=== PATIENT | male | born 1970 | race Caucasian/White ===

== ENCOUNTER 2019-12-15 07:43 | Inpatient (IN) | payer OTHER ==
[~2019-12-15] VITALS: Ht 170.2 cm; Wt 57.8 kg
[~2019-12-15 07:43] MED LIST: CEFP200 PO; CLON1 PO; GABA800 PO; KEPPRA1000 M1 PO; MORP30 PO; OMEP20ER PO; Pentasa500 MG PO; Prinivil10 MG PO; XARELTO20 MG PO
[2019-12-15 08:24] LABS: BASOPHILS ABSOLUTE AUTO 0.02 K/mm3 (0.00-0.23); BASOPHILS PERCENT AUTO 0 % (0-2); EOSINOPHILS ABSOLUTE AUTO 0.11 K/mm3 (0.00-0.68); EOSINOPHILS PERCENT AUTO 1 % (0-6); Hematocrit 34.3 % (37.0-53.0); Hemoglobin 11.2 g/dL (13.5-17.5); IMMATURE GRAN ABSOLUTE AUTO 0.07 K/mm3 (0.00-0.10); IMMATURE GRAN PERCENT AUTO 1 % (0-1); LYMPHOCYTES ABSOLUTE AUTO 3.29 K/mm3 (0.84-5.20); LYMPHOCYTES PERCENT AUTO 22 % (21-46); MONOCYTES PERCENT AUTO 7 % (4-13); Mean Corpuscular HGB 31.4 pg (26.0-34.0); Mean Corpuscular HGB Conc 32.7 g/dL (31.5-36.5); Mean Corpuscular Volume 96 fL (80-100); Mean Platelet Volume 10.2 fL (9.1-12.4); NEUTROPHILS ABSOLUTE AUTO 10.44 K/mm3 (1.96-9.15); NEUTROPHILS PERCENT AUTO 70 % (41-73); Platelet Count 200 K/mm3 (150-400); RDW Coefficient Variation 14.5 % (11.7-14.2); RDW Standard Deviation 50.5 fL (35.1-46.3); Red Blood Cell Count 3.57 M/mm3 (4.30-5.90); White Blood Cell Count 14.93 K/mm3 (4.00-11.30)
[2019-12-15 08:35] LABS: Albumin/Globulin Ratio 0.8 (0.8-1.8); Bilirubin, Total 0.6 mg/dL (0.1-1.0); Calcium, Blood 8.5 mg/dL (8.5-10.1); Creatinine, Blood 1.82 mg/dL (0.60-1.20); Potassium, Blood 3.8 mmol/L (3.5-5.5)
[2019-12-15 08:36] LABS: International Normalized Ratio 1.22; Prothrombin Time Results 12.9 Sec (9.7-11.5)
[2019-12-15 08:55] LABS: Calcium, Ionized (POC) 1.03 mmol/L (1.10-1.46); Chloride (POC) 98 mmol/L (98-108); Creatinine (POC) 1.8 mg/dL (0.8-1.3); Glucose (ISTAT POC) 85 mg/dL (70-99); Hemoglobin (POC) 12.6 g/dL (13.5-17.5); Potassium (POC) 3.8 mmol/L (3.5-5.5); Sodium (POC) 133 mmol/L (135-148); Total CO2 (POC) 25 mmol/L (21-32)
[2019-12-15 12:13] LABS: Hematocrit 33.3 % (37.0-53.0); Hemoglobin 10.4 g/dL (13.5-17.5)
[2019-12-15] MEDS ORDERED: GABA800 PO (12:14)
[2019-12-15] MEDS ORDERED: CLON.2 PO (12:16)
[2019-12-15] MEDS ORDERED: MIRT30 PO (12:16)
[2019-12-15] MEDS ORDERED: PRAVASTATIN SOD10 MG PO (12:24)
[2019-12-15] MEDS ORDERED: FURO20 PO (12:25)
[2019-12-15] MEDS ORDERED: ZYRTEC10 M2 PO (12:27)
[2019-12-15] MEDS ORDERED: BUDESONIDE EC3 M1 PO (12:37)
--- NOTE | 2019-12-15 14:23 | NUR ---
ARRIVAL TO ICU PT ARRIVES FROM ED TO ICU AT 1325. HE IS DRWOSY AND IS SLOW TO RESPOND; FALLS ASLEEP WHEN CONVERSING AND SPEECH IS SLIGHLTY GARBLED. AFEBRILE. BP WNL. NSR, HR 80S. LUNG SOUNDS CLEAR. PT HAS HAD TO BOWEL MOVEMENTS SINCE ARRIVAL; LIQUID, GREEN STOOL. KEPPRA INFUSION STARTED AT ARRIVAL. ZOFRAN 4 MG IVP GIVEN. ENDOSCOPY TEAM AT BEDSIDE SETTING UP FOR PROCEDURE. PTS FATHER AT BEDSIDE. WILL CONTINUE TO [facility].
--- NOTE | 2019-12-15 14:57 | NUR ---
12/15/19 1457 VIJAYA COELLO History, Chart, Medications and Allergies reviewed before start of procedure. 3-LEAD EKG REVIEWED WITH PHYSICIAN PRIOR TO START OF PROCEDURE. O2 VIA N/C INTACT THROUGHOUT SEDATION/PROCEDURE. MONITOR INTACT WITH CONTINUOUS PULSE OXIMETRY AND INTERMITTENT BP. MAC WITH DR. HARGROVE
--- NOTE | 2019-12-15 15:37 | NUR ---
REASSESSMENT VSS. PT TOLERATED EGD. NO SIGNS OF ACTIVE BLEEDING. PT SLEEPING AT THIS TIME. WILL ADVANCE DIET TOLERATED. WILL CONTINUE TO MONITOR. FATHER AT BEDSIDE.
[2019-12-15 16:00] LABS: Hematocrit 36.6 % (37.0-53.0); Hemoglobin 11.8 g/dL (13.5-17.5)
--- NOTE | 2019-12-15 17:39 | NUR ---
SHIFT SUMMARY PT RECEIVED EGD THIS AFTERNOON; NO BLEEDING FOUND. REPEAT H/H LEVELS HAVE INCREASED SINCE PRIOR DRAW. NO VOMITING THIS AFTERNOON. PT HAS HAD 3 LIQUID BOWEL MOVEMENTS; NO BLOOD SEEN. PT SLEPT MOST OF AFTERNOON FOLLOWING SCOPE. IS NOW SITTING UPRIGHT WATCHING TV. AFEBRILE. BP WNL. NSR, HR 100-110. LR MIV INFUSING AT 75 ML/HR. DIET ADVANCED BUT HAS NO APPETITE. FATHER UPDTAED AT BESIDE. PROTONIX TRANSITIONED TO IVP BID. STILL AWAITING FOR AN ISOLATED STOOL AND ISOLATED URINE SPECIMEN TO SEND TO LAB. PT AWARE OF NEED FOR BOTH. WILL GIVE BEDSIDE, HANDOFF REPORT TO BLESSING TAMAYO.
[2019-12-15 21:11] LABS: Source, Urine Clean Catch
--- NOTE | 2019-12-15 21:11 | NUR ---
ASSUMING CARE OF PATIENT- 1930 ASSUMING CARE OF PATIENT. PATIENT RESTING IN BED CURRENTLY. BEDSIDE CRYPTOGRAPHER SHOWS NSR. VITAL SIGNS STABLE. PATIENT HAS A FLAT AFFECT AND IS WITHDRAWN. PATIENT FOLLOWING COMMANDS APPROPRIATELY. PIV X [address] LR INFUSING CURRENTLY. URINAL AT THE BEDSIDE. CALL LIGHT WIHTIN REACH. CURTAIN OPEN FOR VISIBILITY.
[2019-12-15 21:15] LABS: Bilirubin, Urine Neg (Neg); Blood, Urine Neg (Neg); Glucose Qualitative, Urine Neg (Neg); Ketones, Urine 3+ (Neg); Leukocyte Esterase, Urine Neg (Neg); Nitrite, Urine Neg (Neg); Protein, Urine Neg (Neg); Specific Gravity, Urine 1.015 (1.003-1.022); Urobilinogen, Urine NORM (Normal)
[2019-12-15 21:20] LABS: Appearance, Urine Clear (Clear); Color, Urine Yellow (P-Yellow)
--- NOTE | 2019-12-16 01:41 | NUR ---
UPDATE TO PROVIDER PROVIDER NOTIFIED OF PATIENT'S PAIN NOT MANAGED BY CURRENTLY ORDERED PAIN MEDICATIONS. PATIENT TAKES 30 MG MORPHINE PO EVERY 8 HOURS AT HOME. THIS WAS PAUSED DUE TO NPO STATUS WHICH HAS NOW CHANGED. TORB TO RE-ORDER HOME MORPHINE DOSE.
[2019-12-16 03:52] LABS: Hematocrit 33.3 % (37.0-53.0); Hemoglobin 10.8 g/dL (13.5-17.5); Mean Corpuscular HGB 31.3 pg (26.0-34.0); Mean Corpuscular HGB Conc 32.4 g/dL (31.5-36.5); Mean Corpuscular Volume 97 fL (80-100); Mean Platelet Volume 10.2 fL (9.1-12.4); Platelet Count 216 K/mm3 (150-400); RDW Coefficient Variation 14.7 % (11.7-14.2); RDW Standard Deviation 52.3 fL (35.1-46.3); Red Blood Cell Count 3.45 M/mm3 (4.30-5.90); White Blood Cell Count 8.97 K/mm3 (4.00-11.30)
[2019-12-16 04:08] LABS: Anion Gap 5 mmol/L (6-16); Blood Urea Nitrogen 26 mg/dL (8-24); Bun/Creatinine Ratio 34.3 (12.0-20.0); CO2, Blood 27 mmol/L (21-32); Calcium, Blood 8.2 mg/dL (8.5-10.1); Chloride, Blood 110 mmol/L (98-108); Creatinine, Blood 0.76 mg/dL (0.60-1.20); Glomerular Filtration Rate >60 (60-); Glucose, Blood 99 mg/dL (70-99); Potassium, Blood 3.5 mmol/L (3.5-5.5); Sodium, Blood 142 mmol/L (136-145)
[2019-12-16 05:52] LABS: Adenovirus F 40/41 Not Detected (NOT DETECT); Astrovirus Not Detected (NOT DETECT); Campylobacter Sp Not Detected (NOT DETECT); Cryptosporidium Not Detected (NOT DETECT); Cyclospora Cayetanensis Not Detected (NOT DETECT); E. Coli O157 Not Detected (NOT DETECT); Entamoeba Histolytica Not Detected (NOT DETECT); Enteroaggregative E. coli-EAEC Not Detected (NOT DETECT); Enteropathogenic E. coli-EPEC Not Detected (NOT DETECT); Enterotoxigenic E. coli-ETEC Not Detected (NOT DETECT); Giardia Lamblia Not Detected (NOT DETECT); Norovirus GI/GII Not Detected (NOT DETECT); Plesiomonas Shigelloides Not Detected (NOT DETECT); Rotavirus A Not Detected (NOT DETECT); Salmonella Sp Not Detected (NOT DETECT); Sapovirus Not Detected (NOT DETECT); Shiga Toxin-prod E. coli-STEC Not Detected (NOT DETECT); Shigella/Enteroin E. coli-EIEC Not Detected (NOT DETECT); Vibrio Cholerae Not Detected (NOT DETECT); Vibrio Sp Not Detected (NOT DETECT); Yersinia Enterocolitica Not Detected (NOT DETECT)
--- NOTE | 2019-12-16 05:54 | NUR ---
END OF SHIFT SUMMARY PATIENT REMAINS NEUROLIGCALLY INTACT. COMPLAINTS OF BACK AND ABDOMINAL PAIN. PRN FENTANYL GIVEN X 1. HOME PO MORPHINE DOSE RESTARTED. ABLE TO TRANSFER TO AND FROM BEDSIDE COMMODE WITH STANDBY ASSIST. BEDSIDE APRON OPERATOR SHOWS NSR/ST. TACHYCARDIC IN THE 90S-110S. BP STABLE. AFEBRILE. NO NOTABLE EDEMA. PATIENT HAVING FREQUENT EPISODES OF LIQUID WATERY DIARRHEA, INCONTINENT AT TIMES. VOIDS WITH URINAL. ADVANCING DIET TOLERATED. POOR APPETITE. PIV X [address] LR INFUSING AT 75 MLS/HR. SKIN IS INTACT WITH SCATTERED AREAS OF ECCHYMOSIS. PATIENT CALLS APPRORPIATELY. CALL LIGHT REMAINS WITHIN REACH OF THE PATIENT.
--- NOTE | 2019-12-16 13:15 | NUR ---
REASSESSMENT PT CONTINUES TO DO WELL WITH NO SIGNS OF BLEEDING. HE REMAINS QUITE UNCOMFORTABLE THOUGH, LARGELY DUE TO THE BED PT SAYS. OFFERED TO GET PT UP TO A CHAIR, WHICH PT INITIALLY ACCEPTED, BUT THEN REFUSED BECAUSE HE WANTED TO NAP. PLAN IS FOR PT TO HOPEFULLY GO HOME TODAY, BUT WAITING ON C.DIFF TOXIN. CALLED LAB AND THEY SAID THEY WILL TRY TO RUN IT TODAY, BUT THEY CAN'T GIVE A TIME FRAME ON WHEN THEY WILL GET IT DONE. DR. DIEHL INFORMED OF THIS BECAUSE PT IS ASKING IF HE CAN SIGN HIMSELF OUT AND DR. DIEHL SAID HE WILL COME TALK TO PT. LUNGS REMAIN CLEAR, RA, SR, BP STABLE. STILL HAVING LIQUID STOOLS. CONTINUING TO MONITOR.
--- NOTE | 2019-12-16 16:19 | NUR ---
C.DIFF TOXIN BACK AND PT TO DISCHARGE HOME. DISCHARGE PACKET GIVEN TO PT WITH INSTRUCTIONS REGARDING FOLLOW UP APPTS AND MEDICATIONS. PT PROVIDED WITH EDUCATION ON C.DIFF AND GI BLEEDS. PT VERBALIZED UNDERSTANDING OF INSTRUCTIONS. IV REMOVED. PT DRESSED AND WAITING FOR HIS RIDE.
--- NOTE | 2019-12-16 16:40 | NUR ---
DISCHARGE PT DISCHARGED VIA PRIVATE VEHICLE. ALL BELONGINGS SENT HOME WITH PT.
== END 2019-12-16 16:35 | disposition home or self-care (01) | DRG 369 ==
LOC: ER 07:43 → ICUW 11:58 → ICUE 11:58
PROVIDERS: Nurse Practitioner Acute Care; Physician Assistant; Student in an Organized Health Care Education/Training Program; ADMIT Internal Medicine
PROC: 0DJ08ZZ Inspection of Upper Intestinal Tract, Via Natural or Artificial Opening Endoscopic (ICD-10-PCS; principal; 2019-12-15 13:30)
PROC: 0DJD8ZZ Inspection of Lower Intestinal Tract, Via Natural or Artificial Opening Endoscopic (ICD-10-PCS; 2019-12-15 13:30)
DX: K22.6 Gastro-esophageal laceration-hemorrhage syndrome (principal); D62 Acute posthemorrhagic anemia; K50.90 Crohn's disease, unspecified, without complications; N17.9 Acute kidney failure, unspecified; G90.50 Complex regional pain syndrome I, unspecified; K21.0 Gastro-esophageal reflux disease with esophagitis; I25.10 Atherosclerotic heart disease of native coronary artery without angina pectoris; Z86.718 Personal history of other venous thrombosis and embolism; F17.210 Nicotine dependence, cigarettes, uncomplicated; Z86.73 Personal history of transient ischemic attack (TIA), and cerebral infarction without residual deficits; R76.0 Raised antibody titer; G40.909 Epilepsy, unspecified, not intractable, without status epilepticus; I95.9 Hypotension, unspecified; K44.9 Diaphragmatic hernia without obstruction or gangrene; K31.7 Polyp of stomach and duodenum
CPT/HCPCS: 0097U; 36415; 74176; 80047; 80048; 80053; 81003; 85014; 85018; 85025; 85027; 85610; 86850; 86900; 86901; 87324; 93005; 93010; 96361; 96365; 96366; 96375; 96376; 99285-25; C9113; J0171; J1170; J1430; J1953; J2405; J2704; J2765; J3010; J7030; J7120; U0002

== ENCOUNTER 2021-04-03 09:59 | Emergency (ER) | payer OTHER ==
[~2021-04-03] VITALS: Ht 177.8 cm; Wt 65.8 kg
[~2021-04-03 09:59] MED LIST changes: +BUDESONIDE EC3 M1 PO; +CLON.2 PO; +DOXY100 PO; +FURO20 PO; +MIRT30 PO; +PRAVASTATIN SOD10 MG PO; +ZYRTEC10 M2 PO
[2021-04-03 10:52] LABS: BASOPHILS ABSOLUTE AUTO 0.05 K/mm3 (0.00-0.23); BASOPHILS PERCENT AUTO 1 % (0-2); EOSINOPHILS ABSOLUTE AUTO 0.17 K/mm3 (0.00-0.68); EOSINOPHILS PERCENT AUTO 2 % (0-6); Hematocrit 45.9 % (37.0-53.0); IMMATURE GRAN ABSOLUTE AUTO 0.04 K/mm3 (0.00-0.10); IMMATURE GRAN PERCENT AUTO 0 % (0-1); LYMPHOCYTES ABSOLUTE AUTO 2.39 K/mm3 (0.84-5.20); LYMPHOCYTES PERCENT AUTO 27 % (21-46); MONOCYTES ABSOLUTE AUTO 0.68 K/mm3 (0.16-1.47); MONOCYTES PERCENT AUTO 8 % (4-13); Mean Corpuscular HGB 28.5 pg (26.0-34.0); Mean Corpuscular HGB Conc 30.5 g/dL (31.5-36.5); Mean Corpuscular Volume 93 fL (80-100); Mean Platelet Volume 9.7 fL (9.1-12.4); NEUTROPHILS PERCENT AUTO 63 % (41-73); Platelet Count 341 K/mm3 (150-400); RDW Coefficient Variation 16.2 % (11.7-14.2); Red Blood Cell Count 4.92 M/mm3 (4.30-5.90); White Blood Cell Count 9.03 K/mm3 (4.00-11.30)
[2021-04-03 11:16] LABS: Alanine Aminotransfer (ALT/SGP 12 U/L (12-78); Albumin, Blood 2.9 g/dL (3.4-5.0); Albumin/Globulin Ratio 0.5 (0.8-1.8); Alk Phos 101 U/L (50-136); Anion Gap 5 mmol/L (6-16); Aspartate Aminotrans (AST/SGOT 11 U/L (12-37); Bilirubin, Total 0.3 mg/dL (0.1-1.0); Blood Urea Nitrogen 10 mg/dL (8-24); Bun/Creatinine Ratio 12.2 (12.0-20.0); CO2, Blood 27 mmol/L (21-32); Chloride, Blood 105 mmol/L (98-108); Creatinine, Blood 0.82 mg/dL (0.60-1.20); Globulin, Blood 5.3 g/dL (2.2-4.0); Glomerular Filtration Rate >60 (60-); Glucose, Blood 81 mg/dL (70-99); Potassium, Blood 4.4 mmol/L (3.5-5.5); Sodium, Blood 137 mmol/L (136-145); Total Protein, Blood 8.2 g/dL (6.4-8.2); Troponin I <0.015 ng/mL (0.000-0.040)
== END 2021-04-03 13:08 | disposition home or self-care (01) ==
LOC: ER 09:59
PROVIDERS: Student in an Organized Health Care Education/Training Program
DX: M94.0 Chondrocostal junction syndrome [Tietze] (principal); R09.1 Pleurisy; K21.9 Gastro-esophageal reflux disease without esophagitis; Z86.718 Personal history of other venous thrombosis and embolism; I25.10 Atherosclerotic heart disease of native coronary artery without angina pectoris; F17.210 Nicotine dependence, cigarettes, uncomplicated; Z88.6 Allergy status to analgesic agent; Z88.8 Allergy status to other drugs, medicaments and biological substances; Z91.048 Other nonmedicinal substance allergy status; Z79.899 Other long term (current) drug therapy
CPT/HCPCS: 36415; 71046; 80053; 83690; 83880; 84484; 85025; 93005; 93010; 99285-25

== ENCOUNTER 2021-05-02 11:41 | Emergency (ER) | payer OTHER ==
[~2021-05-02] VITALS: Ht 172.7 cm; Wt 63.5 kg
[2021-05-02 12:47] LABS: BASOPHILS ABSOLUTE AUTO 0.05 K/mm3 (0.00-0.23); BASOPHILS PERCENT AUTO 1 % (0-2); EOSINOPHILS ABSOLUTE AUTO 0.18 K/mm3 (0.00-0.68); EOSINOPHILS PERCENT AUTO 2 % (0-6); Hematocrit 45.4 % (37.0-53.0); Hemoglobin 14.5 g/dL (13.5-17.5); IMMATURE GRAN ABSOLUTE AUTO 0.04 K/mm3 (0.00-0.10); IMMATURE GRAN PERCENT AUTO 0 % (0-1); LYMPHOCYTES ABSOLUTE AUTO 2.83 K/mm3 (0.84-5.20); LYMPHOCYTES PERCENT AUTO 27 % (21-46); MONOCYTES ABSOLUTE AUTO 0.75 K/mm3 (0.16-1.47); MONOCYTES PERCENT AUTO 7 % (4-13); Mean Corpuscular HGB 28.8 pg (26.0-34.0); Mean Corpuscular HGB Conc 31.9 g/dL (31.5-36.5); Mean Corpuscular Volume 90 fL (80-100); Mean Platelet Volume 9.7 fL (9.1-12.4); NEUTROPHILS PERCENT AUTO 64 % (41-73); Platelet Count 374 K/mm3 (150-400); RDW Coefficient Variation 15.9 % (11.7-14.2); RDW Standard Deviation 52.4 fL (35.1-46.3); Red Blood Cell Count 5.04 M/mm3 (4.30-5.90); White Blood Cell Count 10.65 K/mm3 (4.00-11.30)
[2021-05-02 13:35] LABS: Alanine Aminotransfer (ALT/SGP 8 U/L (12-78); Albumin, Blood 3.3 g/dL (3.4-5.0); Albumin/Globulin Ratio 0.7 (0.8-1.8); Alk Phos 113 U/L (50-136); Anion Gap 6 mmol/L (6-16); Aspartate Aminotrans (AST/SGOT 9 U/L (12-37); Bilirubin, Total 0.4 mg/dL (0.1-1.0); Blood Urea Nitrogen 11 mg/dL (8-24); Bun/Creatinine Ratio 14.4 (12.0-20.0); CO2, Blood 24 mmol/L (21-32); Calcium, Blood 8.9 mg/dL (8.5-10.1); Chloride, Blood 104 mmol/L (98-108); Creatinine, Blood 0.77 mg/dL (0.60-1.20); Glomerular Filtration Rate >60 (60-); Glucose, Blood 80 mg/dL (70-99); Potassium, Blood 4.2 mmol/L (3.5-5.5); Sodium, Blood 134 mmol/L (136-145); Total Protein, Blood 8.3 g/dL (6.4-8.2)
== END 2021-05-02 18:06 | disposition home or self-care (01) ==
LOC: ER 11:41
PROVIDERS: Physician Assistant
DX: R51.9 Headache, unspecified (principal); H54.61 Unqualified visual loss, right eye, normal vision left eye; R20.0 Anesthesia of skin; K21.9 Gastro-esophageal reflux disease without esophagitis; F17.210 Nicotine dependence, cigarettes, uncomplicated; Z88.6 Allergy status to analgesic agent; Z91.048 Other nonmedicinal substance allergy status; Z88.8 Allergy status to other drugs, medicaments and biological substances; Z79.899 Other long term (current) drug therapy; Z79.01 Long term (current) use of anticoagulants; Z86.718 Personal history of other venous thrombosis and embolism
CPT/HCPCS: 70450; 80053; 85025; 85651; 93005; 93010; 96374; 96375; 99285-25; J2270

== ENCOUNTER 2021-10-09 11:51 | Inpatient (IN) | payer OTHER ==
[~2021-10-09] VITALS: Ht 167.6 cm; Wt 65.1 kg
[2021-10-09 12:11] LABS: PCO2 Arterial 60.2 mmHg (35-45)
[2021-10-09 12:12] LABS: BASOPHILS ABSOLUTE AUTO 0.02 K/mm3 (0.00-0.23); BASOPHILS PERCENT AUTO 0 % (0-2); EOSINOPHILS PERCENT AUTO 0 % (0-6); Hematocrit 41.9 % (37.0-53.0); Hemoglobin 12.4 g/dL (13.5-17.5); IMMATURE GRAN ABSOLUTE AUTO 0.14 K/mm3 (0.00-0.10); IMMATURE GRAN PERCENT AUTO 1 % (0-1); LYMPHOCYTES ABSOLUTE AUTO 0.86 K/mm3 (0.84-5.20); LYMPHOCYTES PERCENT AUTO 4 % (21-46); MONOCYTES ABSOLUTE AUTO 1.13 K/mm3 (0.16-1.47); MONOCYTES PERCENT AUTO 6 % (4-13); Mean Corpuscular HGB Conc 29.6 g/dL (31.5-36.5); Mean Corpuscular Volume 98 fL (80-100); Mean Platelet Volume 9.4 fL (9.1-12.4); NEUTROPHILS PERCENT AUTO 89 % (41-73); Platelet Count 347 K/mm3 (150-400); RDW Coefficient Variation 16.3 % (11.7-14.2); RDW Standard Deviation 59.6 fL (35.1-46.3); Red Blood Cell Count 4.27 M/mm3 (4.30-5.90); White Blood Cell Count 20.05 K/mm3 (4.00-11.30)
[2021-10-09 12:13] LABS: PO2 Arterial 47.1 mmHg (80-100); pH Blood Arterial 7.16 (7.35-7.45)
[2021-10-09 12:48] LABS: Albumin, Blood 3.3 g/dL (3.4-5.0); Albumin/Globulin Ratio 0.8 (0.8-1.8); Bilirubin, Total 0.3 mg/dL (0.1-1.0); Bun/Creatinine Ratio 15.6 (12.0-20.0); Calcium, Blood 8.5 mg/dL (8.5-10.1); Creatinine, Blood 1.92 mg/dL (0.60-1.20); Globulin, Blood 4.2 g/dL (2.2-4.0); Potassium, Blood 6.2 mmol/L (3.5-5.5); Total Protein, Blood 7.5 g/dL (6.4-8.2)
[2021-10-09 13:04] LABS: Influenza A, PCR NEGATIVE (NEGATIVE); Influenza B, PCR NEGATIVE (NEGATIVE); Resp Syncytial Virus, PCR NEGATIVE (NEGATIVE); SARS-Cov-2 (COVID-19) PCR, MMC NEGATIVE (NEGATIVE)
[2021-10-09 13:30] LABS: Calcium, Ionized (POC) 1.05 mmol/L (1.10-1.46); Chloride (POC) 106 mmol/L (98-108); Creatinine (POC) 1.9 mg/dL (0.8-1.3); Glucose (ISTAT POC) 109 mg/dL (70-99); Hemoglobin (POC) 15.3 g/dL (13.5-17.5); Potassium (POC) 6.7 mmol/L (3.5-5.5); Sodium (POC) 139 mmol/L (135-148); Total CO2 (POC) 26 mmol/L (21-32)
[2021-10-09 14:40] LABS: Hematocrit 37.6 % (37.0-53.0); Hemoglobin 11.2 g/dL (13.5-17.5)
[2021-10-09 14:44] LABS: Source, Urine Foley catheter
[2021-10-09 14:49] LABS: Appearance, Urine Clear (Clear); Bilirubin, Urine Neg (Neg); Blood, Urine 2+ (Neg); Color, Urine Amber (P-Yellow); Glucose Qualitative, Urine Neg (Neg); Ketones, Urine Neg (Neg); Leukocyte Esterase, Urine Neg (Neg); Nitrite, Urine Neg (Neg); Protein, Urine 2+ (Neg); Specific Gravity, Urine 1.025 (1.003-1.022); Urobilinogen, Urine NORM (Normal)
[2021-10-09 15:04] LABS: Granular Casts 0-2 /lpf (0)
[2021-10-09 15:06] LABS: Amorphous Light (0-Heavy); Bacteria Many /hpf; Red Blood Cells, Urine 0-2 /hpf (0-2); Squamous Epithelial Cells Not Seen /hpf (Few); White Blood Cells, Urine 0-2 /hpf (0-5)
[2021-10-09 15:11] LABS: U Amphetamine Screen Not Detected; U Barbituate Screen Not Detected; U Benzodiazapine Screen Not Detected; U Buprenorphine Screen Not Detected; U Cannabinoids Screen DETECTED; U Cocaine Screen Not Detected; U Methadone Screen Not Detected; U Methamphetamine Screen Not Detected; U Opiates Screen DETECTED; U Oxycodone Screen Not Detected; U Phencyclidine Screen Not Detected; U Propoxyphene Screen Not Detected
--- NOTE | 2021-10-09 15:30 | NUR ---
RECEIVED PT FROM ER [facility]IA [employer]. PMH-MULTIPLE CVA'S, LUPUS, CAD, RIGHT ARM NEUROPATHY/ CRUSH INJURY, GERD, CROHN'S, ROMERO'S ESOPHAGUS AND GIB.PT IS INTUBATED AND MECHANICALLY VENTILATED. PT OPENS EYES TO VOICE AND FOLLOWS COMMANDS. PT NODDING APPROPRIATELY TO "YES" OR "NO" QUESTIONS. PT GRIMACING, COUGHING, AND REACHING FOR ETT. SOFT WRIST RESTRAINTS PLACED TO PREVENT ACCIDENTAL EXTUBATION. PROPOFOL DRIP INITIATED @ 10 MCG/KG/MIN. ECG SHOWS SR WITH RATE 80-90'S. MAP 73 ON LEVOHED @ 5 MCG/MIN. PT SKIN IS PALE. THE LOWER EXTREMITIES APPEAR BROWNISH IN COLOR (VENOUS STATUS) AND THERE IS NO HAIR ON THE LEGS. MOTTLING NOTED FROM THE KNEES DOWN. DP/PT PULSES FAINT. LUNGS DIMINISHED IN THE BASES. ETT 8.0/24 @ LIP. ETT TO VENT" AC/VC 20, 365, PEEP 5, FIO2 60%. SATS>90% ETT SUCTION PRODUCTIVE OF MODERATE AMOUNT OF THICK, YELLOW SPUTUM-SPUTUM SPECIMEN SENT IN ER. OGT WITH BROWN/BLOODY DRAINAIGE NOTED. HYPO BT'S X 4. DUKE TO BSD WITH YELLOW URINE TO UROMETER. PT RECEIVED 3 LITERS IV IN THE ER. DR. GAINES HAS BEEN CONSULTED. FULL UPDATE GIVEN. PT FAMILY GIVEN UPDATE WELL. FAMILY IN ICU WAITING PT IN NEED FOR PICC LINE PLACEMENT.
--- NOTE | 2021-10-09 17:00 | NUR ---
PICC LINE HAS BEEN PLACED. MAP TRENDING >65 ON LEVOPHED @ 5 MCG/MIN. PT RESTING QUIETLY ON VENT WITH PROPOFOL @ 15 MCG/KG/MIN. FENTANYL 50 MCG IVP X 1 GIVEN FOR PAIN/SEDATION ADJUNCT. ABG DRAWN AND RESULTS TO DR. GAINES. FIO2 DECREASED TO 50%. PROTONIX 40 MG IVP HAS BEEN GIVEN FOR BLOODY OGT DRAINAGE. LOVENOX HELD. NS BOLUS #2 IN ICU INITIATED. NA BICARB DRIP INITIATED-SEE EMAR.
[2021-10-09 17:03] LABS: PCO2 Arterial 50.4 mmHg (35-45); PO2 Arterial 175 mmHg (80-100)
[2021-10-09 17:04] LABS: pH Blood Arterial 7.22 (7.35-7.45)
[2021-10-09 17:07] LABS: Bun/Creatinine Ratio 21.5 (12.0-20.0); Calcium, Blood 7.2 mg/dL (8.5-10.1); Creatinine, Blood 1.35 mg/dL (0.60-1.20); Potassium, Blood 5.3 mmol/L (3.5-5.5)
[2021-10-09 18:23] LABS: Hematocrit 36.2 % (37.0-53.0)
--- NOTE | 2021-10-09 18:25 | NUR ---
PT RESTING QUIETLY ON VENT WITH PROPOFOL @ 15 MCG/KG/MIN. HR CONTINUES 80'S SR. MAP TRENDING 70'S WITH LEVOPHED @ 5 MCG/MIN. OGT CONTINUES WITH SMALL AMOUNT OF BROWN/BLOODY DRAINAGE. H&H SENT. PT FAMILY AT BEDSIDE. FULL UPDATE GIVEN.
--- NOTE | 2021-10-09 19:00 | NUR ---
ASSUMED CARE OF HUAN. PT ON VENTILATOR 365/5/50%, LUNGS DIMINISHED, SECRETIONS LIGHT RETURN WITH STREAKED COLORING, GOOD COUGH AND GAG, OPENS EYES TO VOICE, FOLLOWS COMMANDS, PUPILS SLIGHTLY SLUGGISH, DIAPHORETIC, BEADS OF SWEAT OVER HIS FOREHEAD. GRIMACES TO TOUCH OF THE LOWER EXTREMITIES. PROPOFOL @ 15MCG/KG/MIN, NAHCO3 @ 125ML/HR, NOREPI @ 5MCG/MIN, NS @ 10ML. ABDOMEN FLAT, SOFT, BOWEL SOUNDS HEARD, OG TO LIS WITH MAROON RETURN, DUKE DARK YELLOW RETURN SLIGHT SEDIMENT IN TUBING. STASIS SKIN ON BILAT LOWER EXTREMITIES WITH SCABS PRESENT, COOL, PAINFUL TO TOUCH, FAINT PULSES PALPABLE. HAIR DAMP FROM DIAPHORESIS.
--- NOTE | 2021-10-09 21:00 | NUR ---
@ [address] FOR HEAD SCAN, PT TOLERATED WELL. ASSISTED BY MALINDART AND DMITRY CORLEY.
[2021-10-09 21:18] LABS: Hemoglobin 11.3 g/dL (13.5-17.5)
[2021-10-09 21:37] LABS: Bun/Creatinine Ratio 24.8 (12.0-20.0); Creatinine, Blood 0.97 mg/dL (0.60-1.20); Potassium, Blood 4.7 mmol/L (3.5-5.5)
[2021-10-10 04:15] LABS: BASOPHILS ABSOLUTE AUTO 0.02 K/mm3 (0.00-0.23); BASOPHILS PERCENT AUTO 0 % (0-2); EOSINOPHILS PERCENT AUTO 0 % (0-6); Hematocrit 34.5 % (37.0-53.0); Hemoglobin 11.1 g/dL (13.5-17.5); IMMATURE GRAN ABSOLUTE AUTO 0.08 K/mm3 (0.00-0.10); IMMATURE GRAN PERCENT AUTO 1 % (0-1); LYMPHOCYTES ABSOLUTE AUTO 0.92 K/mm3 (0.84-5.20); LYMPHOCYTES PERCENT AUTO 6 % (21-46); MONOCYTES PERCENT AUTO 3 % (4-13); Mean Corpuscular HGB 29.5 pg (26.0-34.0); Mean Corpuscular HGB Conc 32.2 g/dL (31.5-36.5); Mean Platelet Volume 9.8 fL (9.1-12.4); NEUTROPHILS ABSOLUTE AUTO 14.07 K/mm3 (1.96-9.15); NEUTROPHILS PERCENT AUTO 90 % (41-73); Platelet Count 261 K/mm3 (150-400); RDW Coefficient Variation 16.2 % (11.7-14.2); RDW Standard Deviation 55.2 fL (35.1-46.3); Red Blood Cell Count 3.76 M/mm3 (4.30-5.90); White Blood Cell Count 15.59 K/mm3 (4.00-11.30)
[2021-10-10 04:19] LABS: Mean Corpuscular Volume 92 fL (80-100)
--- NOTE | 2021-10-10 04:23 | NUR ---
HUAN IS MORE RESTLESS, HE IS MOTIONING AND TRYING TO COMMUNICATE. BP IS ELEVATED, PUTTING LEVO ON SB, WANTS MORE PAIN MEDS BUT IT IS TOO EARLY, INCREASED THE PROPOFOL TO 20MCG/KG/MIN. CXR OBTAINED PER ORDERS, LABS SENT. TRYING TO COMMUNICATE WHAT HAPPENED TO HIM.
[2021-10-10 04:37] LABS: Magnesium, Blood 1.9 mg/dL (1.6-2.4)
[2021-10-10 04:47] LABS: Albumin, Blood 2.1 g/dL (3.4-5.0); Albumin/Globulin Ratio 0.7 (0.8-1.8); Bilirubin, Total 0.3 mg/dL (0.1-1.0); Calcium, Blood 7.1 mg/dL (8.5-10.1); Creatinine, Blood 0.72 mg/dL (0.60-1.20); Potassium, Blood 3.9 mmol/L (3.5-5.5); Total Protein, Blood 5.1 g/dL (6.4-8.2)
--- NOTE | 2021-10-10 05:51 | NUR ---
HUAN CONTINUES ON THE VENTILATOR //50%, SATS 100%. SCANT RETURN TO SUCTIONING OF ETT. PROPOFOL @ 20MCG/KG PER MIN, NAHCO3 @ 125ML/HR, NOREPI ON SB. OPENS EYES TO VOICE, TRYING TO COMMUNICATE, POSITIVE REINFORCEMENT GIVEN. OG CONTINUES TO LIS WITH BROWNISH COLORED RETURN, DUKE WITH DARK YELLOW RETURN TO GRAVITY DRAINAGE. HEART RATE AND BP STABLE. LESS DIAPHORETIC.
--- NOTE | 2021-10-10 08:47 | NUR ---
AM NOTE.... ASSUMED CARE OF PT AT 0700, THE PT IS INTUBATED AND ON PROPOFOL AT 20MCG BUT WIDE AWAKE AND VERY AGITATED, THE PT IS ATTEMPTING TO PULL THE ET TUBE OUT BY SCOOTING DOWN THE BED GIVING HIMSELF MORE SLACK WITH THE WRIST RESTRAINTS. THE PT'S VENT SETTINGS ARE AC/VC:20/365/5/45% WITH O2 SATS >95% L/S CLEAR AND DIM T/O RR IS IN THE HIGH 20'S. THE PT IS IN SR IN THE 70'S-90'S BP IS STABLE WITH MAPS >70. THE PT HAS DEPENDENT EDEMA NOTED TO HIS HANDS NO OTHER EDEMA IS NOTED ON ASSESSMENT. BT PRESENT AND HYPOACTIVE, ABD IS SOFT AND NONTENDER TO PALPATION. THE PT HAS AN OG TUBE TO LIS WITH CLEAR BROWNISH RED GASTRIC CONTENTS NOTED IN THE TUBE. THE PT'S DUKE IS PATENT AND DRAINING TO GRAVITY. THE PT'S TEMP IS 97.4. THE PT'S PROPOFOL WAS AT 2OMCG AT THE START OF THIS SHIFT, THE PT BECAME SO AGITATED THAT HE WAS GIVEN 50MCG OF IV FENTANYL, 4MG IV VERSED AND THE PROPOFOL WAS TITRATED UP TO 70MCG JUST TO KEEP HIM CALM, THE PT WILL OPEN HIS EYES TO LOUD VERBAL STIMULI AT THIS TIME. WILL CONTINUE TO MONITOR.
--- NOTE | 2021-10-10 09:08 | NUR ---
PT UPDATE... DR. CASSIDY AT THE BEDSIDE TO ASSESS THE PT, THE PT'S FAMILY IS ALSO AT THE BEDSIDE. THE PT'S SEDATION WAS TURNED OFF AND THE PT WAS PLACED ON SPONTAINIOUS PS: 15/5 THE PT STARTED TO HICCUP AND HIS RR WAS 8-12 THE PT'S O2 SATS WERE >98%. THE PT'S BP 102/73, HR IS SR IN THE 80'S. THE PT'S L/S CONTINUE TO BE CLEAR AND DIM IN THE BASES. WILL CONTINUE TO MONITOR.
--- NOTE | 2021-10-10 10:03 | NUR ---
PT UPDATE.... THE PT WAS EXTUBATED AT 0946 TO 2L NC WITH O2 SATS >90%. THE PT IS ASKING "WHEN CAN I GO HOME" AND WHEN THIS RN TOLD THE PT IT MIGHT BE A FEW DAYS HE STATED "WELL I'VE GONE AMA BEFORE AND HAD NO PROBLEMS." WILL CONTINUE TO MONITOR.
--- NOTE | 2021-10-10 10:43 | NUR ---
PT UPDATE.... THE PT WAS TITRATED DOWN TO RA WITH O2 SATS AT 94-98%. DR. CASSIDY WAS BACK AT THE BEDSIDE TO ASSESS THE PT, DR. CASSIDY UPDATED THE PT AND HIS FAMILY ON THE PT'S EXPECTED LENGHT OF STAY, THE PT WAS UPSET ABOUT HAVING TO STAY "THIS LONG." WILL CONTINUE TO MONITOR.
--- NOTE | 2021-10-10 18:10 | NUR ---
SHIFT SUMMARY.... NO ACUTE NEGATIVE CHANGES NOTED THIS SHIFT, THE PT HAS BEEN ON RA FOR MOST OF THIS SHIFT WITH O2 SATS >90%. THE PT HAS BEEN IND WITH THE URINAL AT THE BEDSIDE. THE PT'S VS HAVE BEEN STABLE ALL SHIFT WITH MAPS >65. THE PT HAS BEEN EATING A REGULAR DIET WHICH HE HAS TOLERATED WELL. THE PT CONTINUES TO BE IN SR IN THE 70'S-90'S AND DENIES ANY CHEST PAIN. THE PT IS TO TRANSFER TO PCU. WILL CONTINUE TO MONITOR UNTIL REPORT IS GIVEN TO ONCOMING RN.
--- NOTE | 2021-10-10 20:05 | NUR ---
ASSUME PT CARE FROM DELGADO TAMAYO IN ICU. PT IS A&OX4 FOR ME AT THIS TIME. MEDICATED FOR REPORTED CHRONIC PAIN IN SHOULDERS, SEE MAR. REQUESTING HOME DOSE OF KLONIPINE. PT INFORMED THIS MEDICATION WAS NOT ORDERED AT THIS TIME, PT STATES UNDERSTANDING. VSS, ON RA. WARM BLANKET PROVIDED FOR COMFORT. DENIES FURTHER NEDS AT THIS TIME. SAFETY MEASURES IN PLACE.
[2021-10-11 04:03] LABS: BASOPHILS ABSOLUTE AUTO 0.01 K/mm3 (0.00-0.23); BASOPHILS PERCENT AUTO 0 % (0-2); EOSINOPHILS PERCENT AUTO 0 % (0-6); Hematocrit 31.3 % (37.0-53.0); Hemoglobin 10.2 g/dL (13.5-17.5); IMMATURE GRAN ABSOLUTE AUTO 0.11 K/mm3 (0.00-0.10); IMMATURE GRAN PERCENT AUTO 1 % (0-1); LYMPHOCYTES ABSOLUTE AUTO 1.27 K/mm3 (0.84-5.20); LYMPHOCYTES PERCENT AUTO 8 % (21-46); MONOCYTES ABSOLUTE AUTO 0.77 K/mm3 (0.16-1.47); MONOCYTES PERCENT AUTO 5 % (4-13); Mean Corpuscular HGB 29.2 pg (26.0-34.0); Mean Corpuscular HGB Conc 32.6 g/dL (31.5-36.5); Mean Corpuscular Volume 90 fL (80-100); Mean Platelet Volume 9.9 fL (9.1-12.4); NEUTROPHILS PERCENT AUTO 86 % (41-73); Platelet Count 228 K/mm3 (150-400); RDW Coefficient Variation 16.5 % (11.7-14.2); RDW Standard Deviation 54.3 fL (35.1-46.3); Red Blood Cell Count 3.49 M/mm3 (4.30-5.90); White Blood Cell Count 15.46 K/mm3 (4.00-11.30)
[2021-10-11 04:24] LABS: Albumin, Blood 2.2 g/dL (3.4-5.0); Albumin/Globulin Ratio 0.8 (0.8-1.8); Bilirubin, Total 0.5 mg/dL (0.1-1.0); Bun/Creatinine Ratio 23.7 (12.0-20.0); Calcium, Blood 7.8 mg/dL (8.5-10.1); Creatinine, Blood 0.63 mg/dL (0.60-1.20); Globulin, Blood 2.9 g/dL (2.2-4.0); Magnesium, Blood 2.3 mg/dL (1.6-2.4); Phosphorus, Blood 1.5 mg/dL (2.5-4.9); Potassium, Blood 3.5 mmol/L (3.5-5.5); Total Protein, Blood 5.1 g/dL (6.4-8.2)
--- NOTE | 2021-10-11 06:28 | NUR ---
SHIFT SUMMARY: PT VITAL SIGNS HAVE REMAINED STABLE. HR IN 60-70'S IN SINUS RHYTHM. MEDICATED FOR PAIN IN SHOULDERS AT REQUEST, SEE MAR. PT REQUESTING HOME DOSE OF MORPHINE. INFORMED THIS CAN BE DISCUSSED WITH DOCTOR WHEN ROUNDING IN A.M. PT AGREES TO THIS. PT REPORTS GETTING UP AND VOIDING MULTIPLE TIMES THROUGHOUT SHIFT BUT NOT OBSERVED. URINAL PROVIDED AND REQUESTED HE VOID IN THIS TO TRACK I&O'S. PT STATES UNDERSTANDING.
--- NOTE | 2021-10-11 17:09 | NUR ---
SHIFT SUMMARY PT REPORTED SEVERE NAUSEA THAT WAS RELEIVED WITH ONDANSETRON. HOME MEDS WERE RESTARTED PER PROVIDER. PT HAS BEEN FLAT AND WITHDRAWN BUT WILL INTERACT AND COOPERATE WITH CARES. TEMPERATURE HAS SLOWLY CLIMBED THROUGHOUT THE DAY WITH A T.MAX OF 100.4, PROVIDER WAS NOTIFIED AND NEW ORDERS WERE GIVEN.
[2021-10-12 04:54] LABS: BASOPHILS ABSOLUTE AUTO 0.01 K/mm3 (0.00-0.23); BASOPHILS PERCENT AUTO 0 % (0-2); EOSINOPHILS ABSOLUTE AUTO 0.06 K/mm3 (0.00-0.68); EOSINOPHILS PERCENT AUTO 1 % (0-6); Hematocrit 31.2 % (37.0-53.0); IMMATURE GRAN ABSOLUTE AUTO 0.05 K/mm3 (0.00-0.10); IMMATURE GRAN PERCENT AUTO 1 % (0-1); LYMPHOCYTES PERCENT AUTO 29 % (21-46); MONOCYTES ABSOLUTE AUTO 0.98 K/mm3 (0.16-1.47); MONOCYTES PERCENT AUTO 10 % (4-13); Mean Corpuscular HGB 28.8 pg (26.0-34.0); Mean Corpuscular HGB Conc 32.1 g/dL (31.5-36.5); Mean Corpuscular Volume 90 fL (80-100); Mean Platelet Volume 9.8 fL (9.1-12.4); NEUTROPHILS ABSOLUTE AUTO 6.14 K/mm3 (1.96-9.15); NEUTROPHILS PERCENT AUTO 60 % (41-73); Platelet Count 207 K/mm3 (150-400); RDW Coefficient Variation 16.2 % (11.7-14.2); RDW Standard Deviation 53.4 fL (35.1-46.3); Red Blood Cell Count 3.47 M/mm3 (4.30-5.90); White Blood Cell Count 10.24 K/mm3 (4.00-11.30)
[2021-10-12 05:13] LABS: Albumin, Blood 2.2 g/dL (3.4-5.0); Albumin/Globulin Ratio 0.8 (0.8-1.8); Bilirubin, Total 0.4 mg/dL (0.1-1.0); Bun/Creatinine Ratio 12.8 (12.0-20.0); Calcium, Blood 7.7 mg/dL (8.5-10.1); Creatinine, Blood 0.71 mg/dL (0.60-1.20); Globulin, Blood 2.9 g/dL (2.2-4.0); Potassium, Blood 2.6 mmol/L (3.5-5.5); Total Protein, Blood 5.1 g/dL (6.4-8.2)
--- NOTE | 2021-10-12 07:07 | NUR ---
SHIFT SUMMARY: MEDICATED FOR PAIN WITH SCHEDULED PAIN MEDS, SEE MAR. PT HAS COMPLAINED ABOUT UPSET STOMACH DUE TO CRONES DISEASE THROUGHOUT NIGHT, STATES THIS IS NORMAL FOR HIM. PT WAS ABLE TO EAT SANDWHICH WITHOUT ANY NAUSEA OR VOMITING. UP VOIDING CLEAR, YELLOW URINE IN BATHROOM. HOSPITALIST INFORMED OF LOW POTASSIUM THIS A.M., RECEIVED ORDERS FOR IV REPOLACEMENT. RESTING IN BED WATCHING TV. CALL LIGHT IN REACH.
[2021-10-12 09:28] LABS: Vancomycin, Trough 10.7 ug/mL (5.0-10.0)
[2021-10-12 12:41] LABS: Calcium, Blood 7.6 mg/dL (8.5-10.1); Creatinine, Blood 0.6 mg/dL (0.60-1.20); Potassium, Blood 3.1 mmol/L (3.5-5.5)
[2021-10-12] MEDS ORDERED: VISBIOME 112.51 EACH PO (13:12)
[2021-10-12] MEDS ORDERED: LEVO750 PO (13:12)
--- NOTE | 2021-10-12 14:33 | NUR ---
DISCAHRGE SUMMARY PT AMBULATED SELF TO EXIT. DISCHARGE TEACHING WAS GIVEN TO PT AND FAMILY PRESENT AT THE TIME. PT WAS UNINTERESTED IN RECEIVING EDUCATION. ALL BELONGINGS AND DISCHARGE INSTRUCTIONS WERE IN PT'S POSSESSION AT THE TIME OF DISCHARGE.
== END 2021-10-12 13:53 | disposition home or self-care (01) | DRG 871 ==
LOC: ER 11:51 → PCU 14:11 → ICUW 14:11 → ICUE 15:21 → PCU 10-10 18:47
PROVIDERS: Emergency Medicine; Family Medicine; Internal Medicine; Internal Medicine Critical Care Medicine; Nurse Practitioner Acute Care; ADMIT Internal Medicine
PROC: 3E03329 Introduction of Other Anti-infective into Peripheral Vein, Percutaneous Approach (ICD-10-PCS; principal; 2021-10-09)
PROC: 3E033XZ Introduction of Vasopressor into Peripheral Vein, Percutaneous Approach (ICD-10-PCS; 2021-10-09)
PROC: 0BH17EZ Insertion of Endotracheal Airway into Trachea, Via Natural or Artificial Opening (ICD-10-PCS; 2021-10-09)
PROC: 02HV33Z Insertion of Infusion Device into Superior Vena Cava, Percutaneous Approach (ICD-10-PCS; 2021-10-09)
PROC: 5A1935Z Respiratory Ventilation, Less than 24 Consecutive Hours (ICD-10-PCS; 2021-10-09)
DX: A41.01 Sepsis due to Methicillin susceptible Staphylococcus aureus (principal); J96.01 Acute respiratory failure with hypoxia; J96.02 Acute respiratory failure with hypercapnia; J18.9 Pneumonia, unspecified organism; R65.21 Severe sepsis with septic shock; G92.8 Other toxic encephalopathy; K72.00 Acute and subacute hepatic failure without coma; N17.9 Acute kidney failure, unspecified; K50.90 Crohn's disease, unspecified, without complications; G90.50 Complex regional pain syndrome I, unspecified; D68.62 Lupus anticoagulant syndrome; F11.20 Opioid dependence, uncomplicated; A41.81 Sepsis due to Enterococcus; Z66 Do not resuscitate; I10 Essential (primary) hypertension; M79.642 Pain in left hand; G40.909 Epilepsy, unspecified, not intractable, without status epilepticus; M32.9 Systemic lupus erythematosus, unspecified; M25.532 Pain in left wrist; E87.6 Hypokalemia; T40.601A Poisoning by unspecified narcotics, accidental (unintentional), initial encounter; S60.852A Superficial foreign body of left wrist, initial encounter; M45.9 Ankylosing spondylitis of unspecified sites in spine; G62.9 Polyneuropathy, unspecified; Z20.822 Contact with and (suspected) exposure to COVID-19; E78.5 Hyperlipidemia, unspecified; G89.4 Chronic pain syndrome; K21.9 Gastro-esophageal reflux disease without esophagitis; K22.70 Barrett's esophagus without dysplasia; Z98.890 Other specified postprocedural states; Z90.49 Acquired absence of other specified parts of digestive tract; Z88.8 Allergy status to other drugs, medicaments and biological substances; Z79.52 Long term (current) use of systemic steroids; Z79.811 Long term (current) use of aromatase inhibitors; Z87.11 Personal history of peptic ulcer disease; Z87.19 Personal history of other diseases of the digestive system; E87.5 Hyperkalemia; Z79.01 Long term (current) use of anticoagulants; Z86.711 Personal history of pulmonary embolism; Z95.828 Presence of other vascular implants and grafts; Z86.73 Personal history of transient ischemic attack (TIA), and cerebral infarction without residual deficits; Z79.899 Other long term (current) drug therapy; Z86.718 Personal history of other venous thrombosis and embolism; Z87.891 Personal history of nicotine dependence; W45.8XXA Other foreign body or object entering through skin, initial encounter
CPT/HCPCS: 0241U; 31500; 36415; 36569; 36600; 51702; 70450; 71045; 73100; 73120; 80047; 80048; 80053; 80202; 81001; 82330; 82803; 82947; 83605; 83735; 83880; 84100; 84145; 84484; 85014; 85018; 85025; 85651; 86140; 87040; 87070; 87077; 87086; 87147; 87186; 87205; 93005; 93010; 94002; 94003; 94640; 94660; 94762; 96361; 96374; 96375; 99285-25; A9270; C1751; C9113; J0330; J0456; J0610; J0696; J1720; J1815; J1953; J2060; J2250; J2704; J3010; J3370; J3475; J3480; J7030; J7040; J7050; J7060; J7070

== ENCOUNTER 2021-11-09 11:46 | Emergency (ER) | payer OTHER ==
[~2021-11-09] VITALS: Ht 170.2 cm; Wt 61.2 kg
[~2021-11-09 11:46] MED LIST changes: +LEVO750 PO; +VISBIOME 112.51 EACH PO
[2021-11-09 12:31] LABS: BASOPHILS ABSOLUTE AUTO 0.03 K/mm3 (0.00-0.23); BASOPHILS PERCENT AUTO 0 % (0-2); EOSINOPHILS ABSOLUTE AUTO 0.02 K/mm3 (0.00-0.68); EOSINOPHILS PERCENT AUTO 0 % (0-6); Hematocrit 40.8 % (37.0-53.0); Hemoglobin 13.2 g/dL (13.5-17.5); IMMATURE GRAN ABSOLUTE AUTO 0.04 K/mm3 (0.00-0.10); IMMATURE GRAN PERCENT AUTO 0 % (0-1); LYMPHOCYTES ABSOLUTE AUTO 1.71 K/mm3 (0.84-5.20); LYMPHOCYTES PERCENT AUTO 19 % (21-46); MONOCYTES ABSOLUTE AUTO 0.34 K/mm3 (0.16-1.47); MONOCYTES PERCENT AUTO 4 % (4-13); Mean Corpuscular HGB 29.4 pg (26.0-34.0); Mean Corpuscular HGB Conc 32.4 g/dL (31.5-36.5); Mean Corpuscular Volume 91 fL (80-100); NEUTROPHILS ABSOLUTE AUTO 6.77 K/mm3 (1.96-9.15); NEUTROPHILS PERCENT AUTO 76 % (41-73); Platelet Count 336 K/mm3 (150-400); RDW Coefficient Variation 16.9 % (11.7-14.2); RDW Standard Deviation 56.8 fL (35.1-46.3); Red Blood Cell Count 4.49 M/mm3 (4.30-5.90); White Blood Cell Count 8.91 K/mm3 (4.00-11.30)
[2021-11-09 12:57] LABS: Albumin, Blood 3.4 g/dL (3.4-5.0); Albumin/Globulin Ratio 0.8 (0.8-1.8); Bilirubin, Total 0.5 mg/dL (0.1-1.0); Bun/Creatinine Ratio 24.6 (12.0-20.0); Calcium, Blood 9.1 mg/dL (8.5-10.1); Creatinine, Blood 0.69 mg/dL (0.60-1.20); Globulin, Blood 4.2 g/dL (2.2-4.0); Potassium, Blood 4.5 mmol/L (3.5-5.5); Total Protein, Blood 7.6 g/dL (6.4-8.2)
[2021-11-09 13:51] LABS: Source, Urine Clean Catch
[2021-11-09 13:54] LABS: Appearance, Urine Clear (Clear); Bilirubin, Urine Neg (Neg); Blood, Urine 1+ (Neg); Color, Urine Yellow (P-Yellow); Glucose Qualitative, Urine Neg (Neg); Ketones, Urine Neg (Neg); Leukocyte Esterase, Urine Neg (Neg); Nitrite, Urine Neg (Neg); Protein, Urine 1+ (Neg); Urobilinogen, Urine NORM (Normal)
[2021-11-09 14:07] LABS: White Blood Cells, Urine 0-2 /hpf (0-5)
[2021-11-09 14:08] LABS: Bacteria Few /hpf; Mucus Mod (0-Heavy); Spermatozoa Few /hpf; Squamous Epithelial Cells Rare /hpf (Few)
[2021-11-09 15:21] LABS: Influenza A, PCR NEGATIVE (NEGATIVE); Influenza B, PCR NEGATIVE (NEGATIVE); Resp Syncytial Virus, PCR NEGATIVE (NEGATIVE); SARS-Cov-2 (COVID-19) PCR, MMC NEGATIVE (NEGATIVE)
== END 2021-11-09 17:55 | disposition home or self-care (01) ==
LOC: ER 11:46
PROVIDERS: Emergency Medicine; Physician Assistant
DX: R41.82 Altered mental status, unspecified (principal); R06.02 Shortness of breath; I10 Essential (primary) hypertension; E78.5 Hyperlipidemia, unspecified; D68.62 Lupus anticoagulant syndrome; G40.909 Epilepsy, unspecified, not intractable, without status epilepticus; Z87.891 Personal history of nicotine dependence; Z79.01 Long term (current) use of anticoagulants; Z79.899 Other long term (current) drug therapy; Z88.6 Allergy status to analgesic agent; Z88.8 Allergy status to other drugs, medicaments and biological substances; Z91.09 Other allergy status, other than to drugs and biological substances; Z20.822 Contact with and (suspected) exposure to COVID-19
CPT/HCPCS: 0241U; 70450; 71045; 80053; 81001; 82140; 82375; 84443; 85025; 93005; 93010; 99285-25

== ENCOUNTER 2022-04-11 12:24 | Emergency (ER) | payer OTHER ==
[~2022-04-11] VITALS: Ht 172.7 cm; Wt 66.7 kg
[2022-04-11 14:47] LABS: Albumin, Blood 3.3 g/dL (3.4-5.0); Albumin/Globulin Ratio 0.8 (0.8-1.8); Bun/Creatinine Ratio 20.7 (12.0-20.0); Calcium, Blood 8.4 mg/dL (8.5-10.1); Creatinine, Blood 0.97 mg/dL (0.60-1.20); Globulin, Blood 4.3 g/dL (2.2-4.0); Potassium, Blood 4.2 mmol/L (3.5-5.5); Total Protein, Blood 7.6 g/dL (6.4-8.2)
[2022-04-11 15:59] LABS: BASOPHILS ABSOLUTE AUTO 0.07 K/mm3 (0.00-0.23); BASOPHILS PERCENT AUTO 0 % (0-2); EOSINOPHILS ABSOLUTE AUTO 0.02 K/mm3 (0.00-0.68); EOSINOPHILS PERCENT AUTO 0 % (0-6); Hematocrit 40.3 % (37.0-53.0); Hemoglobin 13.3 g/dL (13.5-17.5); IMMATURE GRAN ABSOLUTE AUTO 0.24 K/mm3 (0.00-0.10); IMMATURE GRAN PERCENT AUTO 1 % (0-1); LYMPHOCYTES ABSOLUTE AUTO 1.88 K/mm3 (0.84-5.20); LYMPHOCYTES PERCENT AUTO 9 % (21-46); MONOCYTES ABSOLUTE AUTO 1.23 K/mm3 (0.16-1.47); MONOCYTES PERCENT AUTO 6 % (4-13); Mean Corpuscular Volume 91 fL (80-100); NEUTROPHILS ABSOLUTE AUTO 16.82 K/mm3 (1.96-9.15); NEUTROPHILS PERCENT AUTO 83 % (41-73); NRBC ABSOLUTE 0.02 K/mm3 (0.00-0.02); NRBC Auto 0.1 /100 WBC (0.0-0.2); RDW Coefficient Variation 14.9 % (11.7-14.2); RDW Standard Deviation 49.6 fL (35.1-46.3); Red Blood Cell Count 4.44 M/mm3 (4.30-5.90); White Blood Cell Count 20.26 K/mm3 (4.00-11.30)
[2022-04-11 16:19] LABS: Mean Platelet Volume 10.3 fL (9.1-12.4); Platelet Count 300 K/mm3 (150-400)
[2022-04-11] MEDS ORDERED: AMOCLA875 PO (19:15)
[2022-04-11] MEDS ORDERED: AZIT250 PO (19:15)
[2022-04-11 19:54] LABS: Influenza A, PCR NEGATIVE (NEGATIVE); Influenza B, PCR NEGATIVE (NEGATIVE); Resp Syncytial Virus, PCR NEGATIVE (NEGATIVE); SARS-Cov-2 (COVID-19) PCR, MMC NEGATIVE (NEGATIVE)
== END 2022-04-11 19:45 | disposition home or self-care (01) ==
LOC: ER 12:24
PROVIDERS: Physician Assistant; Student in an Organized Health Care Education/Training Program
DX: J18.9 Pneumonia, unspecified organism (principal); D72.829 Elevated white blood cell count, unspecified; R07.9 Chest pain, unspecified; I10 Essential (primary) hypertension; E78.5 Hyperlipidemia, unspecified; Z88.6 Allergy status to analgesic agent; Z88.8 Allergy status to other drugs, medicaments and biological substances; Z91.048 Other nonmedicinal substance allergy status; Z79.899 Other long term (current) drug therapy; Z79.01 Long term (current) use of anticoagulants; Z86.718 Personal history of other venous thrombosis and embolism
CPT/HCPCS: 0241U; 36415; 71046; 71260; 80053; 83605; 84484; 85025; 85379; 94640; 94664; A9270; J0456; J0696; J7050; Q9967

== ENCOUNTER → 2022-05-29 | Outpatient (CLI) | payer OTHER ==
[~2022-05-29] MED LIST changes: +AMOCLA875 PO; +AZIT250 PO
[2022-05-29 14:16] LABS: BASOPHILS ABSOLUTE AUTO 0.04 K/mm3 (0.00-0.23); BASOPHILS PERCENT AUTO 1 % (0-2); EOSINOPHILS ABSOLUTE AUTO 0.13 K/mm3 (0.00-0.68); EOSINOPHILS PERCENT AUTO 2 % (0-6); Hematocrit 39.5 % (37.0-53.0); Hemoglobin 12.4 g/dL (13.5-17.5); IMMATURE GRAN ABSOLUTE AUTO 0.02 K/mm3 (0.00-0.10); IMMATURE GRAN PERCENT AUTO 0 % (0-1); LYMPHOCYTES ABSOLUTE AUTO 1.92 K/mm3 (0.84-5.20); LYMPHOCYTES PERCENT AUTO 28 % (21-46); MONOCYTES PERCENT AUTO 7 % (4-13); Mean Corpuscular HGB 28.8 pg (26.0-34.0); Mean Corpuscular HGB Conc 31.4 g/dL (31.5-36.5); Mean Corpuscular Volume 92 fL (80-100); Mean Platelet Volume 10.1 fL (9.1-12.4); NEUTROPHILS ABSOLUTE AUTO 4.21 K/mm3 (1.96-9.15); NEUTROPHILS PERCENT AUTO 62 % (41-73); Platelet Count 263 K/mm3 (150-400); RDW Coefficient Variation 16.2 % (11.7-14.2); RDW Standard Deviation 54.4 fL (35.1-46.3); White Blood Cell Count 6.82 K/mm3 (4.00-11.30)
[2022-05-29 14:27] LABS: Albumin, Blood 3.2 g/dL (3.4-5.0); Albumin/Globulin Ratio 0.8 (0.8-1.8); Bilirubin, Total 0.3 mg/dL (0.1-1.0); Bun/Creatinine Ratio 11.7 (12.0-20.0); Calcium, Blood 8.8 mg/dL (8.5-10.1); Creatinine, Blood 0.77 mg/dL (0.60-1.20); Potassium, Blood 4.3 mmol/L (3.5-5.5); Total Protein, Blood 7.2 g/dL (6.4-8.2)
[2022-05-29 15:11] LABS: International Normalized Ratio 1.04; Prothrombin Time Results 10.9 Sec (9.7-11.5)
== END | disposition home or self-care (01) ==
LOC: LAB SHORT 14:11 → LAB 14:11
PROVIDERS: Emergency Medicine
DX: R51.9 Headache, unspecified (principal)
CPT/HCPCS: 80053; 85025; 85610

== ENCOUNTER → 2022-07-16 | Outpatient (CLI) | payer OTHER ==
[2022-07-16 13:47] LABS: BASOPHILS ABSOLUTE AUTO 0.04 K/mm3 (0.00-0.23); BASOPHILS PERCENT AUTO 0 % (0-2); EOSINOPHILS ABSOLUTE AUTO 0.34 K/mm3 (0.00-0.68); EOSINOPHILS PERCENT AUTO 4 % (0-6); Hematocrit 38.8 % (37.0-53.0); IMMATURE GRAN ABSOLUTE AUTO 0.04 K/mm3 (0.00-0.10); IMMATURE GRAN PERCENT AUTO 0 % (0-1); LYMPHOCYTES ABSOLUTE AUTO 2.89 K/mm3 (0.84-5.20); LYMPHOCYTES PERCENT AUTO 31 % (21-46); MONOCYTES ABSOLUTE AUTO 0.67 K/mm3 (0.16-1.47); MONOCYTES PERCENT AUTO 7 % (4-13); Mean Corpuscular HGB 28.4 pg (26.0-34.0); Mean Corpuscular HGB Conc 30.9 g/dL (31.5-36.5); Mean Corpuscular Volume 92 fL (80-100); Mean Platelet Volume 10.8 fL (9.1-12.4); NEUTROPHILS ABSOLUTE AUTO 5.39 K/mm3 (1.96-9.15); NEUTROPHILS PERCENT AUTO 58 % (41-73); Platelet Count 302 K/mm3 (150-400); RDW Coefficient Variation 17.2 % (11.7-14.2); RDW Standard Deviation 58.7 fL (35.1-46.3); Red Blood Cell Count 4.22 M/mm3 (4.30-5.90); White Blood Cell Count 9.37 K/mm3 (4.00-11.30)
[2022-07-16 15:51] LABS: Albumin, Blood 3.2 g/dL (3.4-5.0); Albumin/Globulin Ratio 0.8 (0.8-1.8); Bilirubin, Total 0.4 mg/dL (0.1-1.0); Bun/Creatinine Ratio 10.8 (12.0-20.0); Calcium, Blood 8.8 mg/dL (8.5-10.1); Creatinine, Blood 0.74 mg/dL (0.60-1.20); Globulin, Blood 3.8 g/dL (2.2-4.0); Potassium, Blood 4.1 mmol/L (3.5-5.5)
== END | disposition home or self-care (01) ==
LOC: LAB SHORT 10:04 → LAB 10:04
PROVIDERS: Internal Medicine Rheumatology
DX: M32.9 Systemic lupus erythematosus, unspecified (principal)
CPT/HCPCS: 36415; 80053; 85025; 85651

== ENCOUNTER → 2023-01-20 | Outpatient (CLI) | payer OTHER ==
[2023-01-20 14:37] LABS: BASOPHILS ABSOLUTE AUTO 0.05 K/mm3 (0.00-0.23); BASOPHILS PERCENT AUTO 1 % (0-2); EOSINOPHILS ABSOLUTE AUTO 0.18 K/mm3 (0.00-0.68); EOSINOPHILS PERCENT AUTO 2 % (0-6); Hematocrit 41.1 % (37.0-53.0); Hemoglobin 13.3 g/dL (13.5-17.5); IMMATURE GRAN ABSOLUTE AUTO 0.03 K/mm3 (0.00-0.10); IMMATURE GRAN PERCENT AUTO 0 % (0-1); LYMPHOCYTES ABSOLUTE AUTO 2.84 K/mm3 (0.84-5.20); LYMPHOCYTES PERCENT AUTO 26 % (21-46); MONOCYTES ABSOLUTE AUTO 0.91 K/mm3 (0.16-1.47); MONOCYTES PERCENT AUTO 8 % (4-13); Mean Corpuscular HGB 30.6 pg (26.0-34.0); Mean Corpuscular HGB Conc 32.4 g/dL (31.5-36.5); Mean Corpuscular Volume 95 fL (80-100); Mean Platelet Volume 10.6 fL (9.1-12.4); NEUTROPHILS ABSOLUTE AUTO 6.83 K/mm3 (1.96-9.15); NEUTROPHILS PERCENT AUTO 63 % (41-73); Platelet Count 315 K/mm3 (150-400); RDW Coefficient Variation 16.1 % (11.7-14.2); Red Blood Cell Count 4.35 M/mm3 (4.30-5.90); White Blood Cell Count 10.84 K/mm3 (4.00-11.30)
[2023-01-20 21:16] LABS: Albumin, Blood 3.4 g/dL (3.4-5.0); Albumin/Globulin Ratio 0.9 (0.8-1.8); Bilirubin, Total 0.4 mg/dL (0.1-1.0); Bun/Creatinine Ratio 11.1 (12.0-20.0); Calcium, Blood 8.5 mg/dL (8.5-10.1); Creatinine, Blood 0.81 mg/dL (0.60-1.20); Globulin, Blood 3.9 g/dL (2.2-4.0); Potassium, Blood 4.5 mmol/L (3.5-5.5); Total Protein, Blood 7.3 g/dL (6.4-8.2)
== END ==
LOC: LAB 12:55 → LAB SHORT 12:55
PROVIDERS: Internal Medicine Rheumatology
DX: M32.9 Systemic lupus erythematosus, unspecified (principal)
CPT/HCPCS: 80053; 85025; 85651

== ENCOUNTER 2023-06-01 09:15 | Emergency (ER) | payer OTHER ==
[~2023-06-01] VITALS: Ht 172.7 cm; Wt 59.9 kg
[2023-06-01 09:55] LABS: Hemoglobin 14.2 g/dL (13.5-17.5); Mean Corpuscular HGB 29.5 pg (26.0-34.0); Mean Corpuscular HGB Conc 30.9 g/dL (31.5-36.5); Mean Corpuscular Volume 96 fL (80-100); Mean Platelet Volume 10.3 fL (9.1-12.4); Platelet Count 222 K/mm3 (150-400); RDW Coefficient Variation 16.2 % (11.7-14.2); RDW Standard Deviation 57.2 fL (35.1-46.3); Red Blood Cell Count 4.81 M/mm3 (4.30-5.90); White Blood Cell Count 7.71 K/mm3 (4.00-11.30)
[2023-06-01 10:15] LABS: Base Excess Venous 2.9 mmol/L; Bicarbonate Venous 26.3 mmol/L (24.0-30.0); PCO2 Venous 47.6 mmHg (38-42); pH Blood Venous 7.38 (7.34-7.37)
[2023-06-01 10:17] LABS: Magnesium, Blood 1.9 mg/dL (1.6-2.4)
[2023-06-01 10:18] LABS: Alanine Aminotransfer (ALT/SGP 23 U/L (12-78); Albumin, Blood 3.2 g/dL (3.4-5.0); Albumin/Globulin Ratio 0.8 (0.8-1.8); Alk Phos 85 U/L (50-136); Anion Gap Unable to Calculate mmol/L (6-16); Aspartate Aminotrans (AST/SGOT 31 U/L (12-37); Bilirubin, Total 0.7 mg/dL (0.1-1.0); Blood Urea Nitrogen 11 mg/dL (8-24); Bun/Creatinine Ratio 17.7 (12.0-20.0); CO2, Blood 29 mmol/L (21-32); Calcium, Blood 8.6 mg/dL (8.5-10.1); Chloride, Blood 108 mmol/L (98-108); Creatinine, Blood 0.62 mg/dL (0.60-1.20); Globulin, Blood 4.2 g/dL (2.2-4.0); Glomerular Filtration Rate 114 (60-); Glucose, Blood 120 mg/dL (70-99); Potassium, Blood 4.3 mmol/L (3.5-5.5); Sodium, Blood 136 mmol/L (136-145); Total Protein, Blood 7.4 g/dL (6.4-8.2)
[2023-06-01 10:22] LABS: BASOPHILS PERCENT MAN 0 % (0-2); EOSINOPHILS ABSOLUTE MAN 0.46 K/mm3 (0.00-0.68); EOSINOPHILS PERCENT MAN 6 % (0-6); LYMPHOCYTES % ATYPICAL MANUAL 2 % (0-0); LYMPHOCYTES ABSOLUTE MAN 2.85 K/mm3 (0.84-5.20); LYMPHOCYTES PERCENT MAN 35 % (21-46); MONOCYTES PERCENT MAN 4 % (4-13); NEUTROPHILS ABSOLUTE MAN 4.08 K/mm3 (1.96-9.15); SEG NEUTROPHILS PERCENT MAN 53 % (41-73); TOTAL CELLS COUNTED 100
[2023-06-01 11:08] LABS: Influenza A, PCR NEGATIVE (NEGATIVE); Influenza B, PCR NEGATIVE (NEGATIVE); Resp Syncytial Virus, PCR NEGATIVE (NEGATIVE); SARS-Cov-2 (COVID-19) PCR, MMC NEGATIVE (NEGATIVE)
[2023-06-01 13:32] LABS: Source, Urine Clean Catch
[2023-06-01 13:34] LABS: Appearance, Urine Clear (Clear); Bilirubin, Urine Neg (Neg); Blood, Urine 2+ (Neg); Color, Urine Yellow (P-Yellow); Glucose Qualitative, Urine Neg (Neg); Ketones, Urine Neg (Neg); Leukocyte Esterase, Urine Neg (Neg); Nitrite, Urine Neg (Neg); Protein, Urine Neg (Neg); Specific Gravity, Urine 1.005 (1.003-1.022); Urobilinogen, Urine NORM (Normal)
[2023-06-01 14:01] LABS: Bacteria Rare /hpf; Squamous Epithelial Cells Rare /hpf (Few); White Blood Cells, Urine 0-2 /hpf (0-5)
[2023-06-01 14:33] VITALS: BP 131/95
== END 2023-06-01 14:35 | disposition home or self-care (01) ==
LOC: ER 09:15
PROVIDERS: Emergency Medicine
DX: G47.00 Insomnia, unspecified (principal); D68.62 Lupus anticoagulant syndrome; I10 Essential (primary) hypertension; I69.351 Hemiplegia and hemiparesis following cerebral infarction affecting right dominant side; E78.5 Hyperlipidemia, unspecified; G40.909 Epilepsy, unspecified, not intractable, without status epilepticus; M45.9 Ankylosing spondylitis of unspecified sites in spine; K50.918 Crohn's disease, unspecified, with other complication; H20.9 Unspecified iridocyclitis; G62.9 Polyneuropathy, unspecified; Z88.6 Allergy status to analgesic agent; Z91.048 Other nonmedicinal substance allergy status; Z88.8 Allergy status to other drugs, medicaments and biological substances; Z79.01 Long term (current) use of anticoagulants; Z79.899 Other long term (current) drug therapy; Z87.820 Personal history of traumatic brain injury
CPT/HCPCS: 0241U; 70450; 80053; 81001; 82803; 83605; 83735; 83880; 84484; 85025; 93005; 93010; 96361; 96374; 99285-25; J7030

== ENCOUNTER → 2023-10-07 | Outpatient (CLI) | payer OTHER ==
[~2023-10-07] MED LIST changes: +COMPAZINE10 MG PO
== END | disposition home or self-care (01) ==
LOC: LAB SHORT 13:39 → LAB 13:39
DX: L57.0 Actinic keratosis (principal)
CPT/HCPCS: 88305

== ENCOUNTER → 2024-05-17 | Outpatient (CLI) | payer OTHER ==
[2024-05-17 14:33] LABS: BASOPHILS ABSOLUTE AUTO 0.04 K/mm3 (0.00-0.23); BASOPHILS PERCENT AUTO 0 % (0-2); EOSINOPHILS ABSOLUTE AUTO 0.24 K/mm3 (0.00-0.68); EOSINOPHILS PERCENT AUTO 3 % (0-6); Hematocrit 47.4 % (37.0-53.0); Hemoglobin 15.4 g/dL (13.5-17.5); IMMATURE GRAN ABSOLUTE AUTO 0.02 K/mm3 (0.00-0.10); IMMATURE GRAN PERCENT AUTO 0 % (0-1); LYMPHOCYTES PERCENT AUTO 31 % (21-46); MONOCYTES ABSOLUTE AUTO 0.75 K/mm3 (0.16-1.47); MONOCYTES PERCENT AUTO 8 % (4-13); Mean Corpuscular HGB 31.4 pg (26.0-34.0); Mean Corpuscular HGB Conc 32.5 g/dL (31.5-36.5); Mean Corpuscular Volume 97 fL (80-100); Mean Platelet Volume 10.5 fL (9.1-12.4); NEUTROPHILS ABSOLUTE AUTO 5.53 K/mm3 (1.96-9.15); NEUTROPHILS PERCENT AUTO 58 % (41-73); Platelet Count 251 K/mm3 (150-400); RDW Coefficient Variation 14.2 % (11.7-14.2); RDW Standard Deviation 50.9 fL (35.1-46.3); White Blood Cell Count 9.58 K/mm3 (4.00-11.30)
[2024-05-17 14:45] LABS: Albumin, Blood 3.3 g/dL (3.4-5.0); Albumin/Globulin Ratio 0.9 (0.8-1.8); Bilirubin, Total 0.8 mg/dL (0.1-1.0); Bun/Creatinine Ratio 20.2 (12.0-20.0); Calcium, Blood 8.7 mg/dL (8.5-10.1); Creatinine, Blood 0.79 mg/dL (0.60-1.20); Globulin, Blood 3.8 g/dL (2.2-4.0); Potassium, Blood 4.5 mmol/L (3.5-5.5); Total Protein, Blood 7.1 g/dL (6.4-8.2)
== END ==
LOC: LAB 13:12 → LAB SHORT 13:12
PROVIDERS: Internal Medicine Rheumatology
DX: M32.9 Systemic lupus erythematosus, unspecified (principal)
CPT/HCPCS: 80053; 85025; 85651

== ENCOUNTER 2024-11-17 08:06 | Emergency (ER) | payer OTHER ==
[~2024-11-17] VITALS: Ht 167.6 cm; Wt 61.2 kg
[2024-11-17] MEDS ORDERED: Ondansetron HCl 2 MG / ML 2ML Vial IV PRN (08:25)
[2024-11-17 09:20] LABS: BASOPHILS ABSOLUTE AUTO 0.05 K/mm3 (0.00-0.23); BASOPHILS PERCENT AUTO 1 % (0-2); EOSINOPHILS ABSOLUTE AUTO 0.24 K/mm3 (0.00-0.68); EOSINOPHILS PERCENT AUTO 2 % (0-6); Hematocrit 41.9 % (37.0-53.0); Hemoglobin 13.8 g/dL (13.5-17.5); IMMATURE GRAN ABSOLUTE AUTO 0.03 K/mm3 (0.00-0.10); IMMATURE GRAN PERCENT AUTO 0 % (0-1); LYMPHOCYTES ABSOLUTE AUTO 2.46 K/mm3 (0.84-5.20); LYMPHOCYTES PERCENT AUTO 25 % (21-46); MONOCYTES ABSOLUTE AUTO 1.01 K/mm3 (0.16-1.47); MONOCYTES PERCENT AUTO 10 % (4-13); Mean Corpuscular HGB Conc 32.9 g/dL (31.5-36.5); Mean Corpuscular Volume 91 fL (80-100); NEUTROPHILS ABSOLUTE AUTO 6.17 K/mm3 (1.96-9.15); NEUTROPHILS PERCENT AUTO 62 % (41-73); NRBC ABSOLUTE 0.00 K/mm3 (0.00-0.02); NRBC Auto 0.0 /100 WBC (0.0-0.2); Platelet Count 320 K/mm3 (150-400); RDW Coefficient Variation 14.4 % (11.7-14.2); RDW Standard Deviation 48.1 fL (35.1-46.3)
[2024-11-17 09:48] LABS: Alanine Aminotransfer (ALT/SGP 41.0 U/L (12-78); Albumin, Blood 2.9 g/dL (3.4-5.0); Albumin/Globulin Ratio 0.6 (0.8-1.8); Anion Gap 9.0 mmol/L (3-11); Aspartate Aminotrans (AST/SGOT 33.0 U/L (12-37); Bilirubin, Total 0.8 mg/dL (0.1-1.0); Blood Urea Nitrogen 9.0 mg/dL (8-24); CO2, Blood 28.0 mmol/L (21-32); Calcium, Blood 8.4 mg/dL (8.5-10.1); Chloride, Blood 102.0 mmol/L (98-108); Creatinine, Blood 0.81 mg/dL (0.60-1.20); Globulin, Blood 4.8 g/dL (2.2-4.0); Glucose, Blood 79.0 mg/dL (70-99); Potassium, Blood 4.7 mmol/L (3.5-5.5); Sodium, Blood 134.0 mmol/L (136-145); Total Protein, Blood 7.7 g/dL (6.4-8.2)
[2024-11-17] MEDS ORDERED: ONDA4 PO (11:06)
[2024-11-17] MEDS ORDERED: NURTEC ODT75 MG PO (11:08)
[2024-11-17] MEDS ORDERED: INDERAL XL120 M1 PO (11:08)
[2024-11-17] MEDS ORDERED: HYDPAM50 PO (11:09)
[2024-11-17] MEDS ORDERED: MORPHINE SULFATE IR 30 MG PO ONE (11:45)
[2024-11-17 13:00] VITALS: BP 108/85
== END 2024-11-17 13:02 | disposition home or self-care (01) ==
LOC: ER 08:06
PROVIDERS: Emergency Medicine
DX: R04.2 Hemoptysis (principal); J43.9 Emphysema, unspecified; J40 Bronchitis, not specified as acute or chronic; L90.5 Scar conditions and fibrosis of skin; J98.4 Other disorders of lung; D71 Functional disorders of polymorphonuclear neutrophils; I10 Essential (primary) hypertension; Z87.891 Personal history of nicotine dependence; Z86.73 Personal history of transient ischemic attack (TIA), and cerebral infarction without residual deficits; Z79.899 Other long term (current) drug therapy; Z79.51 Long term (current) use of inhaled steroids; Z88.6 Allergy status to analgesic agent; Z91.048 Other nonmedicinal substance allergy status; Z88.8 Allergy status to other drugs, medicaments and biological substances
CPT/HCPCS: 71046; 71260; 80053; 83690; 84484; 85025; 86900; 86901; 93005; 93010; 99284-25; A9270; Q9967